=== PATIENT | male | born 1960 | race Caucasian/White ===

== ENCOUNTER 2016-09-14 10:00 | Emergency (ER) | payer OTHER ==
[2016-09-14] MEDS ORDERED: KETOROLAC 30 MG/ML VIAL (J1885) As Ordered ONE (10:32)
[2016-09-14 10:41] LABS: BASO # 0.1 K/mm3 (0.0-0.2); BASO % 0.5 % (0.0-1.0); EOS # 0.7 K/mm3 (0.0-0.50); EOS % 5.7 % (0.0-3.0); LARGE UNSTAINED CELL # 0.1 K/mm3 (0.0-0.4); LARGE UNSTAINED CELL % 1.2 % (0.0-4.0); LYMPH # 1.8 K/mm3 (1.5-4.5); LYMPH % 14.8 % (24.0-44.0); MEAN CORPUSCULAR HGB CONC 34.5 g/dl (32.0-36.5); MEAN CORPUSCULAR VOLUME 84.1 fl (80.0-96.0); MONO # 0.5 K/mm3 (0.0-0.8); MONO % 4.4 % (0.0-5.0); NEUTROPHILS # 8.8 K/mm3 (1.8-7.7); NEUTROPHILS % 73.4 % (36.0-66.0); PLATELET COUNT, AUTOMATED 259 k/mm3 (150-450); RED CELL DISTRIBUTION WIDTH 12.6 % (11.5-14.5); WHITE BLOOD COUNT 11.9 K/mm3 (4.0-10.0)
[2016-09-14 11:01] LABS: ANION GAP 9 MEQ/L (8-16); BLOOD UREA NITROGEN 22 MG/DL (7-18); CALCIUM LEVEL 8.9 MG/DL (8.5-10.1); CARBON DIOXIDE LEVEL 26 MEQ/L (21-32); CHLORIDE LEVEL 104 MEQ/L (98-107); GLOMERULAR FILTRATION RATE > 60.0 (>56); GLUCOSE, FASTING 102 MG/DL (70-105); POTASSIUM SERUM 4.6 MEQ/L (3.5-5.1); SODIUM LEVEL 139 MEQ/L (136-145)
[2016-09-14 11:11] LABS: ERYTHROCYTE SEDIMENTATION RATE 1 mm/hr (0-20)
--- NOTE | 2016-09-14 11:21 | REP ---
CHEST, TWO VIEWS: Two views of the chest are performed and compared to a prior study of 12/17/2011. There is mild bibasilar fibrotic change, which is stable. There is no acute infiltrate or pulmonary edema. The heart is normal in size. The mediastinal silhouette is unchanged. Metallic plate and screws are seen in the lower cervical spine. There are degenerative changes of the spine. IMPRESSION: No acute pulmonary disease. Signed by Bashir Grossman MD 09/14/2016 01:29 P
--- NOTE | 2016-09-14 11:24 | REP ---
CERVICAL SPINE SERIES: Full cervical spine series is performed with nine total views obtained. There is no compression fracture or malalignment. There is no prevertebral soft tissue swelling. There is evidence of prior anterior cervical discectomy and fusion at C6-7. There is slight narrowing at C5-6 disc space. There is diffuse narrowing, sclerosis and spurring at the posterior facet joints. There is uncovertebral and facet spurring which may cause a mild degree of neural foraminal narrowing at C3-4 bilaterally and C5-6 bilaterally. IMPRESSION: Mild degenerative changes. Prior anterior cervical discectomy and fusion at C6-7. Signed by Bashir Grossman MD 09/14/2016 01:29 P
--- NOTE | 2016-09-14 11:33 | REP ---
Left upper extremity duplex Doppler venous ultrasound. Real time compression and duplex Doppler evaluation of the left upper extremity deep venous system is performed. The left subclavian, jugular, axillary, brachial, basilic and cephalic veins are fully compressible where accessible with transducer pressure, and demonstrate no intraluminal thrombus and normal venous waveforms. There is no evidence of deep venous thrombosis. Impression: No evidence of deep venous thrombosis of the left upper extremity deep vein system. Signed by Bashir Grossman MD 09/14/2016 11:24 A
--- NOTE | 2016-09-14 11:57 | EDDOCDS ---
Physician Documentation [facility] Name: Francois Reich Age: 56 yrs Sex: Male : 1960 Arrival Date: 09/14/2016 Time: 10:00 Bed I5 / M5 Private MD: Sahree [facility] Disposition: 09/14/16 11:46 Discharged to Home/Self Care. Impression: Pain in left upper arm. - Condition is Stable. - Discharge Instructions: Musculoskeletal Pain. - Prescriptions for Mobic 7.5 mg Oral Tablet - take 1 tablet by ORAL route once daily As needed take with food; 20 tablet. - Medication Reconciliation, Local Pharmacy Hours form. - Follow up: Emergency Department; When: As needed; Reason: Worsening of conditions. Follow up: Private Physician; When: 2 - 3 days; Reason: Wound/Symptom Recheck, Recheck today's complaints, Continuance of care. - Problem is new. - Symptoms have improved. Historical: - Allergies: no known allergies; - Home Meds: 1. Nexium 20 mg Oral cpDR 1 cap once daily 2. lisinopril 20 mg Oral tab 1 tab once daily - PMHx: Hypertension; GERD; Shingles; - PSHx: C6 fusion; - Social history: Smoking status: Patient states was never smoker of tobacco. No barriers to communication noted, The patient speaks fluent Taiwanese, Speaks appropriately for age. - Family history: Not pertinent. - : The pt / caregiver states he / she is not on anticoagulants. Home medication list is obtained from the patient. - Exposure Risk Screening:: None identified. Vital Signs: 09/14 10:02 BP 152 / 82; Pulse 79; Resp 18; Temp 98.0; Pulse Ox 98% ; Weight 117.93 kg / 259.99 elp lbs; Height 71 in. (180.34 cm) (R); Pain 7/10; 11:55 BP 135 / 78; Pulse 71; Resp 18; Temp 98; Pulse Ox 96% ; Pain 0/10; ms18 10:02 Body Mass Index 36.26 (117.93 kg, 180.34 cm) elp MDM: 10:08 ECG WITH READING ER PHYS+CARDIAG ordered. EDMS 10:24 IV Saline Lock ordered. dt4 10:24 ketorolac 30 mg IVP once ordered. dt4 10:25 US Upper Extremity R/O DVT Ordered. EDMS 10:25 CBC with Diff Ordered. EDMS 10:25 Basic Metabolic Profile Ordered. EDMS 10:26 Troponin Ordered. EDMS 10:26 Cardiac Injury Profile Ordered. EDMS 10:26 Sed Rate Ordered. EDMS 10:26 CRP Ordered. EDMS 10:26 Chest, 2 View (pa\E\lat) Ordered. EDMS 10:27 Spine, Cervical Ordered. EDMS 11:23 Financial registration complete. pm4 Administered Medications: 10:37 Drug: ketorolac 30 mg [ketorolac 30 mg/mL (1 mL) injection solution (1 mL)] Route: IVP; js13 Site: left antecubital; Signatures: Dispatcher [employer] EDMS Kelli Espinosa, RN RN [facility] Monisha MclaughlinRN RN js13 Adamaris Malik, PA-C PA-C dt4 Lisandra Schwartz RN RN ms18 Anam Jameson, Reg Reg pm4 MTDD
--- NOTE | 2016-09-14 11:57 | EDDOCDS ---
Nurse's Notes [facility] Name: Francois Reich Age: 56 yrs Sex: Male : 1960 Arrival Date: 09/14/2016 Time: 10:00 Bed I5 / M5 Private MD: Sharee Fernando Diagnosis: Pain in left upper arm Presentation: 09/14 10:04 Presenting complaint: Patient states: left arm pain for 3-4 days. denies chest pain or srm SOB. no increase in use of arm. no injury to arm. Adult Sepsis Screening: The patient does not have new or worsening altered mentation. Patient's respiratory rate is less than 22. Systolic blood pressure is greater than 100. Patient has a qSOFA score of 0- Negative Sepsis Screen. Suicide/Homicide risk assessment- the patient denies having any suicidal and/or homicidal ideations and does not present with any other emotional, behavioral or mental health complaints. Status: Patient is not a account services coordinator or dependent. Transition of care: patient was not received from another setting of care. 10:04 Acuity: GRISEL Level 4 srm 10:04 Method Of Arrival: Walkin/Carried/Asstd srm 10:27 Acuity level changed due to complexity of care. srm 10:27 Acuity: GRISEL Level 3 srm Triage Assessment: 10:06 General: Appears in no apparent distress, Behavior is appropriate for age, cooperative. srm Pain: Pain currently is 6 out of 10 on a pain scale. HIV screening NA for this visit Offered previously. Musculoskeletal: Reports left arm pain. Historical: - Allergies: no known allergies; - Home Meds: 1. Nexium 20 mg Oral cpDR 1 cap once daily 2. lisinopril 20 mg Oral tab 1 tab once daily - PMHx: Hypertension; GERD; Shingles; - PSHx: C6 fusion; - Social history: Smoking status: Patient states was never smoker of tobacco. No barriers to communication noted, The patient speaks fluent American, Speaks appropriately for age. - Family history: Not pertinent. - : The pt / caregiver states he / she is not on anticoagulants. Home medication list is obtained from the patient. - Exposure Risk Screening:: None identified. Screenin:38 Screening information is obtained from the patient. Fall risk: No risks identified. js13 Assistance ADL's: requires no assistance with activities of daily living. Abuse/DV Screen: The patient / caregiver reports he/she is: not in a situation that causes fear, pain or injury. Nutritional screening: No deficits noted. Advance Directives: There is no active DNR order. home support is adequate. Assessment: 10:38 General: Appears in no apparent distress, Behavior is appropriate for age, cooperative. js13 Pain: Pain currently is 3 out of 10 on a pain scale. Neurological: Level of Consciousness is awake, alert. Cardiovascular: Chest pain is denied. Respiratory: Airway is patent Respiratory effort is even, unlabored, Respiratory pattern is regular, symmetrical. Derm: Skin is pink, warm & dry. Musculoskeletal: Circulation, motion, and sensation intact Range of motion intact in all extremities. 10:40 General: Patient states that he was told by Irving Camilo to come her to be evaluated and js13 rule out DC since he has "2 small heart attacks" previously. Provider notified.. 11:37 General: Appears in no apparent distress, comfortable, Behavior is appropriate for age, ms18 cooperative, pleasant. Pain: Denies pain. Neurological: Level of Consciousness is awake, alert, obeys commands, Oriented to person, place, time. Respiratory: Airway is patent Respiratory effort is even, unlabored, Respiratory pattern is regular, symmetrical. Derm: Skin is pink, warm & dry. Vital Signs: 10:02 BP 152 / 82; Pulse 79; Resp 18; Temp 98.0; Pulse Ox 98% ; Weight 117.93 kg; Height 71 elp in. (180.34 cm) (R); Pain 7/10; 11:55 BP 135 / 78; Pulse 71; Resp 18; Temp 98; Pulse Ox 96% ; Pain 0/10; ms18 10:02 Body Mass Index 36.26 (117.93 kg, 180.34 cm) elp Vitals: 10:02 Log In Time: September 14, 2016 at 10:00. RN notified that patient meets Red Flag elp criteria. ED Course: 10:02 Patient visited by Jes Sanchez PCA. elp 10:02 Sharee [facility] is Private Physician. elp 10:02 Patient moved to Waiting elp 10:03 Patient visited by Jes Sanchez PCA. elp 10:03 Patient moved to Pre RCE elp 10:05 Triage Initiated srm 10:07 [facility] dt4 10:07 Ric Shepard MD is Attending Physician. dt4 10:07 Patient visited by Adamaris Malik PA-C. dt4 10:07 Patient moved to Triage 2 srm 10:25 Patient moved to I5 / M5 ml6 10:38 The patient / caregiver is instructed regarding the plan of care and ED course. js13 10:38 CRP Sent. js13 10:38 Sed Rate Sent. js13 10:38 Cardiac Injury Profile Sent. js13 10:38 Troponin Sent. js13 10:38 Basic Metabolic Profile Sent. js13 10:38 CBC with Diff Sent. js13 10:38 Inserted saline lock: 18 gauge in left antecubital area and blood collected. The js13 patient tolerated the procedure well. No procedures done that require assistance. Labs drawn. (by ED staff). Sent per order to lab. 10:40 Patient visited by Monisha Mclaughlin,JIMMY. js13 10:41 Patient visited by Monisha Mclaughlin,JIMMY. js13 11:05 Patient moved to Ultrasound js13 11:20 Patient moved to I5 / M5 am10 11:37 Patient visited by Lisandra Schwartz RN. ms18 11:37 Patient has correct armband on for positive identification. Placed in gown. Bed in low ms18 position. Call light in reach. Property :Personal belongings accompany Pt. 11:40 Patient name changed from Francois\\S\\N\\S\\Reich\\S\\ to Francois\\S\\Thuan\\S\\Reich. EDMS 11:54 Chest, 2 View (pa\\E\\lat) Returned. EDMS 11:55 Spine, Cervical Returned. EDMS 11:55 US Upper Extremity R/O DVT Returned. EDMS 11:55 Discontinued IV lock intact, bleeding controlled, pressure dressing applied, No ms18 redness/swelling at site. Administered Medications: 10:37 Drug: ketorolac 30 mg [ketorolac 30 mg/mL (1 mL) injection solution (1 mL)] Route: IVP; js13 Site: left antecubital; Order Results: Lab Order: CBC with Diff; SPEC'M 09/14/16 10:35 Test: WHITE BLOOD COUNT; Value: 11.9; Range: 4.0-10.0; Abnormal: Above high normal; Units: K/mm3; Status: F Test: RED BLOOD COUNT; Value: 5.61; Range: 4.30-6.10; Units: M/mm3; Status: F Test: HEMOGLOBIN; Value: 16.3; Range: 14.0-18.0; Units: g/dl; Status: F Test: HEMATOCRIT; Value: 47.1; Range: 42.0-52.0; Units: %; Status: F Test: MEAN CORPUSCULAR VOLUME; Value: 84.1; Range: 80.0-96.0; Units: fl; Status: F Test: MEAN CORPUSCULAR HEMOGLOBIN; Value: 29.0; Range: 27.0-33.0; Units: pg; Status: F Test: MEAN CORPUSCULAR HGB CONC; Value: 34.5; Range: 32.0-36.5; Units: g/dl; Status: F Test: RED CELL DISTRIBUTION WIDTH; Value: 12.6; Range: 11.5-14.5; Units: %; Status: F Test: PLATELET COUNT, AUTOMATED; Value: 259; Range: 150-450; Units: k/mm3; Status: F Test: NEUTROPHILS %; Value: 73.4; Range: 36.0-66.0; Abnormal: Above high normal; Units: %; Status: F Test: LYMPH %; Value: 14.8; Range: 24.0-44.0; Abnormal: Below low normal; Units: %; Status: F Test: MONO %; Value: 4.4; Range: 0.0-5.0; Units: %; Status: F Test: EOS %; Value: 5.7; Range: 0.0-3.0; Abnormal: Above high normal; Units: %; Status: F Test: BASO %; Value: 0.5; Range: 0.0-1.0; Units: %; Status: F Test: LARGE UNSTAINED CELL %; Value: 1.2; Range: 0.0-4.0; Units: %; Status: F Test: NEUTROPHILS #; Value: 8.8; Range: 1.8-7.7; Abnormal: Above high normal; Units: K/mm3; Status: F Test: LYMPH #; Value: 1.8; Range: 1.5-4.5; Units: K/mm3; Status: F Test: MONO #; Value: 0.5; Range: 0.0-0.8; Units: K/mm3; Status: F Test: EOS #; Value: 0.7; Range: 0.0-0.50; Abnormal: Above high normal; Units: K/mm3; Status: F Test: BASO #; Value: 0.1; Range: 0.0-0.2; Units: K/mm3; Status: F Test: LARGE UNSTAINED CELL #; Value: 0.1; Range: 0.0-0.4; Units: K/mm3; Status: F Lab Order: Basic Metabolic Profile; SPEC'M 09/14/16 10:35 Test: GLUCOSE, FASTING; Value: 102; Range: 70-105; Units: MG/DL; Status: F Test: BLOOD UREA NITROGEN; Value: 22; Range: 7-18; Abnormal: Above high normal; Units: MG/DL; Status: F Test: CREATININE FOR GFR; Value: 1.10; Range: 0.70-1.30; Units: MG/DL; Status: F Test: GLOMERULAR FILTRATION RATE; Value: > 60.0; Range: >56; Status: F Test: SODIUM LEVEL; Value: 139; Range: 136-145; Units: MEQ/L; Status: F Test: POTASSIUM SERUM; Value: 4.6; Range: 3.5-5.1; Units: MEQ/L; Status: F Test: CHLORIDE LEVEL; Value: 104; Range: 98-107; Units: MEQ/L; Status: F Test: CARBON DIOXIDE LEVEL; Value: 26; Range: 21-32; Units: MEQ/L; Status: F Test: ANION GAP; Value: 9; Range: 8-16; Units: MEQ/L; Status: F Test: CALCIUM LEVEL; Value: 8.9; Range: 8.5-10.1; Units: MG/DL; Status: F Test Note: ; Units are mL/min/1.73 m2 Chronic Kidney Disease Staging per NKF: Stage I & II GFR >=60 Normal to Mildly Decreased Stage III GFR 30-59 Moderately Decreased Stage IV GFR 15-29 Severely Decreased Stage V GFR <15 Very Little GFR Left ESRD GFR <15 on NON DESTRUCTIVE TESTING INSPECTOR Lab Order: Troponin; SPEC'M 09/14/16 10:35 Test: TROPONIN I; Value: < 0.02; Range: < 0.10; Units: NG/ML; Status: F Test Note: ; Troponin I Reference Interval for Siemens [place] LOCI: 99th Percentile= 0.00-0.045 ng/ml Risk Stratification: <= 0.10 ng/ml Decreased Risk for Adverse Clinical Events. 0.10-1.50 ng/ml Increased Risk for Adverse Clinical Events. Evaluation of additional criterion and/or repeat testing in 2-6 hours is suggested to rule out myocardial damage. >= 1.50 ng/ml Indicative of Myocardial Injury. Lab Order: Cardiac Injury Profile; SPEC'M 09/14/16 10:35 Test: CPK CREATINE PHOSPHOKINASE; Value: 229; Range: 39-308; Units: U/L; Status: F Test: CK-MB VALUE MASS; Value: 2.8; Range: 0.0-3.6; Units: NG/ML; Status: F Test: MB/CK RELATIVE INDEX; Value: 1.22; Range: < OR =4; Status: F Test Note: ; DIAGNOSIS CRITERIA MMB ng/ml Relative Index (RI) NON-AMI < or = 5 N/A GROSSMAN ZONE > 5 < or = 4 AMI > 5 > 4 Lab Order: Sed Rate; [facility] 09/14/16 10:35 Test: ERYTHROCYTE SEDIMENTATION RATE; Value: 1; Range: 0-20; Units: mm/hr; Status: F Lab Order: CRP; [facility] 09/14/16 10:35 Test: C REACTIVE PROTEIN QUANTITATIV; Value: < 0.30; Range: 0.00-0.30; Units: MG/DL; Status: F Radiology Order: US Upper Extremity R/O DVT Test: US Upper Extremity R/O DVT REASON FOR EXAMINATION: LEFT ARM PAIN; Left upper extremity duplex Doppler venous ultrasound.; ; Real time compression and duplex Doppler evaluation of the left upper extremity; deep venous system is performed. The left subclavian, jugular, axillary,; brachial, basilic and cephalic veins are fully compressible where accessible with; transducer pressure, and demonstrate no intraluminal thrombus and normal venous; waveforms. There is no evidence of deep venous thrombosis.; ; Impression:; ; No evidence of deep venous thrombosis of the left upper extremity deep vein; system.; ; ; Signed by; Bashir Grossman MD 09/14/2016 11:24 A; Radiology Order: Chest, 2 View (pa\\E\\lat) Test: Chest, 2 View (pa\\E\\lat) REASON FOR EXAMINATION: LEFT ARM AND UPPER CHEST PAIN; ; CHEST, TWO VIEWS:; ; Two views of the chest are performed and compared to a prior study of; 12/17/2011.; ; There is mild bibasilar fibrotic change, which is stable. There is no acute; infiltrate or pulmonary edema. The heart is normal in size. The mediastinal; silhouette is unchanged. Metallic plate and screws are seen in the lower cervical; spine. There are degenerative changes of the spine.; ; IMPRESSION:; No acute pulmonary disease.; ; Unreviewed; Radiology Order: Spine, Cervical Test: Spine, Cervical REASON FOR EXAMINATION: LEFT ARM PAIN; CERVICAL SPINE SERIES:; ; Full cervical spine series is performed with nine total views obtained. There is; no compression fracture or malalignment. There is no prevertebral soft tissue; swelling. There is evidence of prior anterior cervical discectomy and fusion at; C6-7. There is slight narrowing at C5-6 disc space. There is diffuse narrowing,; sclerosis and spurring at the posterior facet joints. There is uncovertebral and; facet spurring which may cause a mild degree of neural foraminal narrowing at; C3-4 bilaterally and C5-6 bilaterally.; ; IMPRESSION:; Mild degenerative changes. Prior anterior cervical discectomy and fusion at; C6-7.; ; Unreviewed; Outcome: 11:37 Ultrasound Study completed. ms18 11:46 Discharge ordered by Provider. dt4 11:55 Discharge Assessment: Patient awake, alert and oriented x 3. No cognitive and/or ms18 functional deficits noted. Patient verbalized understanding of disposition instructions. patient administered narcotics - no. The following High Risk Discharge criteria are identified: None. Discharged to home ambulatory. Condition: good Condition: stable Condition: improved. Discharge instructions given to patient, Instructed on discharge instructions, follow up and referral plans. medication usage, Demonstrated understanding of instructions, medications, Pt was receptive of discharge instructions/ teaching. Prescriptions given X 1. 11:57 Patient left the ED. ms18 Signatures: Dispatcher [facility] EDMS Kelli Espinosa RN RN Ida Glibert am10 Anson Harding, RN RN ml6 Monisha Mclaughlin,RN RN js13 Jes Sanchez, EMILI CERTIFIED EXECUTIVE CHEF kaileyp Adamaris Malik, MONA PAFidelia dt4 Lisandra Schwartz,RN RN ms18 MTDD
--- NOTE | 2016-09-15 08:32 | ECGEPIP ---
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
--- NOTE | 2016-09-16 12:57 | EDDOCDS ---
Nurse's Notes [facility] Name: Francois Lal Age: 56 yrs Sex: Male : 1960 Arrival Date: 09/14/2016 Time: 10:00 Bed I5 / M5 Private MD: Sharee Fernando Diagnosis: Pain in left upper arm Presentation: 09/14 10:04 Presenting complaint: Patient states: left arm pain for 3-4 days. denies chest pain or srm SOB. no increase in use of arm. no injury to arm. Adult Sepsis Screening: The patient does not have new or worsening altered mentation. Patient's respiratory rate is less than 22. Systolic blood pressure is greater than 100. Patient has a qSOFA score of 0- Negative Sepsis Screen. Suicide/Homicide risk assessment- the patient denies having any suicidal and/or homicidal ideations and does not present with any other emotional, behavioral or mental health complaints. Status: Patient is not a donor services manager or dependent. Transition of care: patient was not received from another setting of care. 10:04 Acuity: GRISEL Level 4 srm 10:04 Method Of Arrival: Walkin/Carried/Asstd srm 10:27 Acuity level changed due to complexity of care. srm 10:27 Acuity: GRISEL Level 3 srm Triage Assessment: 10:06 General: Appears in no apparent distress, Behavior is appropriate for age, cooperative. srm Pain: Pain currently is 6 out of 10 on a pain scale. HIV screening NA for this visit Offered previously. Musculoskeletal: Reports left arm pain. Historical: - Allergies: no known allergies; - Home Meds: 1. Nexium 20 mg Oral cpDR 1 cap once daily 2. lisinopril 20 mg Oral tab 1 tab once daily - PMHx: Hypertension; GERD; Shingles; - PSHx: C6 fusion; - Social history: Smoking status: Patient states was never smoker of tobacco. No barriers to communication noted, The patient speaks fluent Nauruan, Speaks appropriately for age. - Family history: Not pertinent. - : The pt / caregiver states he / she is not on anticoagulants. Home medication list is obtained from the patient. - Exposure Risk Screening:: None identified. Screenin:38 Screening information is obtained from the patient. Fall risk: No risks identified. js13 Assistance ADL's: requires no assistance with activities of daily living. Abuse/DV Screen: The patient / caregiver reports he/she is: not in a situation that causes fear, pain or injury. Nutritional screening: No deficits noted. Advance Directives: There is no active DNR order. home support is adequate. Assessment: 10:38 General: Appears in no apparent distress, Behavior is appropriate for age, cooperative. js13 Pain: Pain currently is 3 out of 10 on a pain scale. Neurological: Level of Consciousness is awake, alert. Cardiovascular: Chest pain is denied. Respiratory: Airway is patent Respiratory effort is even, unlabored, Respiratory pattern is regular, symmetrical. Derm: Skin is pink, warm & dry. Musculoskeletal: Circulation, motion, and sensation intact Range of motion intact in all extremities. 10:40 General: Patient states that he was told by Irving Camilo to come her to be evaluated and js13 rule out MS since he has "2 small heart attacks" previously. Provider notified.. 11:37 General: Appears in no apparent distress, comfortable, Behavior is appropriate for age, ms18 cooperative, pleasant. Pain: Denies pain. Neurological: Level of Consciousness is awake, alert, obeys commands, Oriented to person, place, time. Respiratory: Airway is patent Respiratory effort is even, unlabored, Respiratory pattern is regular, symmetrical. Derm: Skin is pink, warm & dry. Vital Signs: 10:02 BP 152 / 82; Pulse 79; Resp 18; Temp 98.0; Pulse Ox 98% ; Weight 117.93 kg; Height 71 elp in. (180.34 cm) (R); Pain 7/10; 11:55 BP 135 / 78; Pulse 71; Resp 18; Temp 98; Pulse Ox 96% ; Pain 0/10; ms18 10:02 Body Mass Index 36.26 (117.93 kg, 180.34 cm) elp Vitals: 10:02 Log In Time: September 14, 2016 at 10:00. RN notified that patient meets Red Flag elp criteria. ED Course: 10:02 Patient visited by Jes Sanchez PCA. elp 10:02 Sharee [facility] is Private Physician. elp 10:02 Patient moved to Waiting elp 10:03 Patient visited by Jes Sanchez PCA. elp 10:03 Patient moved to Pre RCE elp 10:05 Triage Initiated srm 10:07 Adamaris Malik PA-C is PHCP. dt4 10:07 Ric Shepard MD is Attending Physician. dt4 10:07 Patient visited by Adamaris Malik PA-C. dt4 10:07 Patient moved to Triage 2 srm 10:25 Patient moved to I5 / M5 ml6 10:38 The patient / caregiver is instructed regarding the plan of care and ED course. js13 10:38 CRP Sent. js13 10:38 Sed Rate Sent. js13 10:38 Cardiac Injury Profile Sent. js13 10:38 Troponin Sent. js13 10:38 Basic Metabolic Profile Sent. js13 10:38 CBC with Diff Sent. js13 10:38 Inserted saline lock: 18 gauge in left antecubital area and blood collected. The js13 patient tolerated the procedure well. No procedures done that require assistance. Labs drawn. (by ED staff). Sent per order to lab. 10:40 Patient visited by Monisha Mclaughlin,JIMMY. js13 10:41 Patient visited by Monisha Mclaughlin,JIMMY. js13 11:05 Patient moved to Ultrasound js13 11:20 Patient moved to I5 / M5 am10 11:37 Patient visited by Lisandra Schwartz RN. ms18 11:37 Patient has correct armband on for positive identification. Placed in gown. Bed in low ms18 position. Call light in reach. Property :Personal belongings accompany Pt. 11:40 Patient name changed from Francois\\S\\N\\S\\Lal\\S\\ to Francois\\S\\Thuan\\S\\Lal. EDMS 11:54 Chest, 2 View (pa\\E\\lat) Returned. EDMS 11:55 Spine, Cervical Returned. EDMS 11:55 US Upper Extremity R/O DVT Returned. EDMS 11:55 Discontinued IV lock intact, bleeding controlled, pressure dressing applied, No ms18 redness/swelling at site. 12:01 [facility] Payment Agreement was scanned into [employer] and attached to record. pm4 14:47 T-Sheet-- Draft Copy was scanned into [employer] and attached to record. gb 14:47 ECG/EKG was scanned into [employer] and attached to record. gb 14:48 Radiology Report was scanned into [employer] and attached to record. gb 09/15 08:38 EKG-ADULT Returned. EDMS Administered Medications: 09/14 10:37 Drug: ketorolac 30 mg [ketorolac 30 mg/mL (1 mL) injection solution (1 mL)] Route: IVP; js13 Site: left antecubital; Order Results: Lab Order: CBC with Diff; SPEC'M 09/14/16 10:35 Test: WHITE BLOOD COUNT; Value: 11.9; Range: 4.0-10.0; Abnormal: Above high normal; Units: K/mm3; Status: F Test: RED BLOOD COUNT; Value: 5.61; Range: 4.30-6.10; Units: M/mm3; Status: F Test: HEMOGLOBIN; Value: 16.3; Range: 14.0-18.0; Units: g/dl; Status: F Test: HEMATOCRIT; Value: 47.1; Range: 42.0-52.0; Units: %; Status: F Test: MEAN CORPUSCULAR VOLUME; Value: 84.1; Range: 80.0-96.0; Units: fl; Status: F Test: MEAN CORPUSCULAR HEMOGLOBIN; Value: 29.0; Range: 27.0-33.0; Units: pg; Status: F Test: MEAN CORPUSCULAR HGB CONC; Value: 34.5; Range: 32.0-36.5; Units: g/dl; Status: F Test: RED CELL DISTRIBUTION WIDTH; Value: 12.6; Range: 11.5-14.5; Units: %; Status: F Test: PLATELET COUNT, AUTOMATED; Value: 259; Range: 150-450; Units: k/mm3; Status: F Test: NEUTROPHILS %; Value: 73.4; Range: 36.0-66.0; Abnormal: Above high normal; Units: %; Status: F Test: LYMPH %; Value: 14.8; Range: 24.0-44.0; Abnormal: Below low normal; Units: %; Status: F Test: MONO %; Value: 4.4; Range: 0.0-5.0; Units: %; Status: F Test: EOS %; Value: 5.7; Range: 0.0-3.0; Abnormal: Above high normal; Units: %; Status: F Test: BASO %; Value: 0.5; Range: 0.0-1.0; Units: %; Status: F Test: LARGE UNSTAINED CELL %; Value: 1.2; Range: 0.0-4.0; Units: %; Status: F Test: NEUTROPHILS #; Value: 8.8; Range: 1.8-7.7; Abnormal: Above high normal; Units: K/mm3; Status: F Test: LYMPH #; Value: 1.8; Range: 1.5-4.5; Units: K/mm3; Status: F Test: MONO #; Value: 0.5; Range: 0.0-0.8; Units: K/mm3; Status: F Test: EOS #; Value: 0.7; Range: 0.0-0.50; Abnormal: Above high normal; Units: K/mm3; Status: F Test: BASO #; Value: 0.1; Range: 0.0-0.2; Units: K/mm3; Status: F Test: LARGE UNSTAINED CELL #; Value: 0.1; Range: 0.0-0.4; Units: K/mm3; Status: F Lab Order: Basic Metabolic Profile; [facility] 09/14/16 10:35 Test: GLUCOSE, FASTING; Value: 102; Range: 70-105; Units: MG/DL; Status: F Test: BLOOD UREA NITROGEN; Value: 22; Range: 7-18; Abnormal: Above high normal; Units: MG/DL; Status: F Test: CREATININE FOR GFR; Value: 1.10; Range: 0.70-1.30; Units: MG/DL; Status: F Test: GLOMERULAR FILTRATION RATE; Value: > 60.0; Range: >56; Status: F Test: SODIUM LEVEL; Value: 139; Range: 136-145; Units: MEQ/L; Status: F Test: POTASSIUM SERUM; Value: 4.6; Range: 3.5-5.1; Units: MEQ/L; Status: F Test: CHLORIDE LEVEL; Value: 104; Range: 98-107; Units: MEQ/L; Status: F Test: CARBON DIOXIDE LEVEL; Value: 26; Range: 21-32; Units: MEQ/L; Status: F Test: ANION GAP; Value: 9; Range: 8-16; Units: MEQ/L; Status: F Test: CALCIUM LEVEL; Value: 8.9; Range: 8.5-10.1; Units: MG/DL; Status: F Test Note: ; Units are mL/min/1.73 m2 Chronic Kidney Disease Staging per NKF: Stage I & II GFR >=60 Normal to Mildly Decreased Stage III GFR 30-59 Moderately Decreased Stage IV GFR 15-29 Severely Decreased Stage V GFR <15 Very Little GFR Left ESRD GFR <15 on TELEPHONE CLEANER Lab Order: Troponin; [facility]09/14/16 10:35 Test: TROPONIN I; Value: < 0.02; Range: < 0.10; Units: NG/ML; Status: F Test Note: ; Troponin I Reference Interval for [employer] LOCI: 99th Percentile= 0.00-0.045 ng/ml Risk Stratification: <= 0.10 ng/ml Decreased Risk for Adverse Clinical Events. 0.10-1.50 ng/ml Increased Risk for Adverse Clinical Events. Evaluation of additional criterion and/or repeat testing in 2-6 hours is suggested to rule out myocardial damage. >= 1.50 ng/ml Indicative of Myocardial Injury. Lab Order: Cardiac Injury Profile; [facility]09/14/16 10:35 Test: CPK CREATINE PHOSPHOKINASE; Value: 229; Range: 39-308; Units: U/L; Status: F Test: CK-MB VALUE MASS; Value: 2.8; Range: 0.0-3.6; Units: NG/ML; Status: F Test: MB/CK RELATIVE INDEX; Value: 1.22; Range: < OR =4; Status: F Test Note: ; DIAGNOSIS CRITERIA MMB ng/ml Relative Index (RI) NON-AMI < or = 5 N/A GROSSMAN ZONE > 5 < or = 4 AMI > 5 > 4 Lab Order: Sed Rate; [facility]09/14/16 10:35 Test: ERYTHROCYTE SEDIMENTATION RATE; Value: 1; Range: 0-20; Units: mm/hr; Status: F Lab Order: CRP; 09/14/16 10:35 Test: C REACTIVE PROTEIN QUANTITATIV; Value: < 0.30; Range: 0.00-0.30; Units: MG/DL; Status: F Radiology Order: EKG-ADULT Test: EKG-ADULT REASON FOR EXAMINATION: LEFT ARM PAIN; Stationary ECG Study; 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; : 1960 Requested By: ADAMARIS Robin PA-C; Order Number: [id number] Reading MD: Michelle Somers; Measurements; Intervals [place]; Rate: 71 P: 35; MS: 176 QRS: 36; QRSD: 107 T: 63; QT: 366; QTc: 400; Interpretive Statements; SINUS RHYTHM; PRWP; NSTTW ABNORMALITY; INCREASED RATE 12/17/11; Electronically Signed On 09-15-2016 8:31:54 EST by Michelle Somers; Radiology Order: US Upper Extremity R/O DVT Test: US Upper Extremity R/O DVT REASON FOR EXAMINATION: LEFT ARM PAIN; Left upper extremity duplex Doppler venous ultrasound.; ; Real time compression and duplex Doppler evaluation of the left upper extremity; deep venous system is performed. The left subclavian, jugular, axillary,; brachial, basilic and cephalic veins are fully compressible where accessible with; transducer pressure, and demonstrate no intraluminal thrombus and normal venous; waveforms. There is no evidence of deep venous thrombosis.; ; Impression:; ; No evidence of deep venous thrombosis of the left upper extremity deep vein; system.; ; ; Signed by; Bashir Grossman MD 09/14/2016 11:24 A; Radiology Order: Chest, 2 View (pa\\E\\lat) Test: Chest, 2 View (pa\\E\\lat) REASON FOR EXAMINATION: LEFT ARM AND UPPER CHEST PAIN; CHEST, TWO VIEWS:; ; Two views of the chest are performed and compared to a prior study of; 12/17/2011.; ; There is mild bibasilar fibrotic change, which is stable. There is no acute; infiltrate or pulmonary edema. The heart is normal in size. The mediastinal; silhouette is unchanged. Metallic plate and screws are seen in the lower cervical; spine. There are degenerative changes of the spine.; ; IMPRESSION:; ; No acute pulmonary disease.; ; ; Signed by; Bashir Grossman MD 09/14/2016 01:29 P; Radiology Order: Spine, Cervical Test: Spine, Cervical REASON FOR EXAMINATION: LEFT ARM PAIN; CERVICAL SPINE SERIES:; ; Full cervical spine series is performed with nine total views obtained. There is; no compression fracture or malalignment. There is no prevertebral soft tissue; swelling. There is evidence of prior anterior cervical discectomy and fusion at; C6-7. There is slight narrowing at C5-6 disc space. There is diffuse narrowing,; sclerosis and spurring at the posterior facet joints. There is uncovertebral and; facet spurring which may cause a mild degree of neural foraminal narrowing at; C3-4 bilaterally and C5-6 bilaterally.; ; IMPRESSION:; ; Mild degenerative changes. Prior anterior cervical discectomy and fusion at; C6-7.; ; ; Signed by; Bashir Grossman MD 09/14/2016 01:29 P; Outcome: 11:37 Ultrasound Study completed. ms18 11:46 Discharge ordered by Provider. dt4 11:55 Discharge Assessment: Patient awake, alert and oriented x 3. No cognitive and/or ms18 functional deficits noted. Patient verbalized understanding of disposition instructions. patient administered narcotics - no. The following High Risk Discharge criteria are identified: None. Discharged to home ambulatory. Condition: good Condition: stable Condition: improved. Discharge instructions given to patient, Instructed on discharge instructions, follow up and referral plans. medication usage, Demonstrated understanding of instructions, medications, Pt was receptive of discharge instructions/ teaching. Prescriptions given X 1. 11:57 Patient left the ED. ms18 Signatures: Dispatcher [employer] EDMS Kelli Espinosa, RN JIMMY [facility] Bridgette Del Angel, Reg Reg gb Ida Simental am10 Anson Harding RN RN ml6 Monisha Mclaughlin RN RN js13 Jes Sanchez, DIRECTOR OF PEDIATRIC REHABILITATION DIRECTOR OF PEDIATRIC REHABILITATION elp Adamaris Malik, PA-C PA-C dt4 Lisandra Schwartz RN RN ms18 Anam Jameson, Reg Reg pm4 Chart Complete MTDD
--- NOTE | 2016-09-16 12:57 | EDDOCDS ---
Physician Documentation [facility] Name: Francois Reich Age: 56 yrs Sex: Male : 1960 Arrival Date: 09/14/2016 Time: 10:00 Bed I5 / M5 Private MD: Sharee [facility] Disposition: 09/14/16 11:46 Discharged to Home/Self Care. Impression: Pain in left upper arm. - Condition is Stable. - Discharge Instructions: Musculoskeletal Pain. - Prescriptions for Mobic 7.5 mg Oral Tablet - take 1 tablet by ORAL route once daily As needed take with food; 20 tablet. - Medication Reconciliation, Local Pharmacy Hours form. - Follow up: Emergency Department; When: As needed; Reason: Worsening of conditions. Follow up: Private Physician; When: 2 - 3 days; Reason: Wound/Symptom Recheck, Recheck today's complaints, Continuance of care. - Problem is new. - Symptoms have improved. Historical: - Allergies: no known allergies; - Home Meds: 1. Nexium 20 mg Oral cpDR 1 cap once daily 2. lisinopril 20 mg Oral tab 1 tab once daily - PMHx: Hypertension; GERD; Shingles; - PSHx: C6 fusion; - Social history: Smoking status: Patient states was never smoker of tobacco. No barriers to communication noted, The patient speaks fluent Korean, Speaks appropriately for age. - Family history: Not pertinent. - : The pt / caregiver states he / she is not on anticoagulants. Home medication list is obtained from the patient. - Exposure Risk Screening:: None identified. Vital Signs: 09/14 10:02 BP 152 / 82; Pulse 79; Resp 18; Temp 98.0; Pulse Ox 98% ; Weight 117.93 kg / 259.99 elp lbs; Height 71 in. (180.34 cm) (R); Pain 7/10; 11:55 BP 135 / 78; Pulse 71; Resp 18; Temp 98; Pulse Ox 96% ; Pain 0/10; ms18 10:02 Body Mass Index 36.26 (117.93 kg, 180.34 cm) elp MDM: 10:08 ECG WITH READING ER PHYS+CARDIAG ordered. EDMS 10:24 IV Saline Lock ordered. dt4 10:24 ketorolac 30 mg IVP once ordered. dt4 10:25 US Upper Extremity R/O DVT Ordered. EDMS 10:25 CBC with Diff Ordered. EDMS 10:25 Basic Metabolic Profile Ordered. EDMS 10:26 Troponin Ordered. EDMS 10:26 Cardiac Injury Profile Ordered. EDMS 10:26 Sed Rate Ordered. EDMS 10:26 CRP Ordered. EDMS 10:26 Chest, 2 View (pa\E\lat) Ordered. EDMS 10:27 Spine, Cervical Ordered. EDMS 11:23 Financial registration complete. pm4 12:01 [facility] Payment Agreement was scanned into [employer] and attached to record. pm4 14:47 T-Sheet-- Draft Copy was scanned into [employer] and attached to record. gb 14:47 ECG/EKG was scanned into [employer] and attached to record. gb 14:48 Radiology Report was scanned into [employer] and attached to record. gb Administered Medications: 10:37 Drug: ketorolac 30 mg [ketorolac 30 mg/mL (1 mL) injection solution (1 mL)] Route: IVP; js13 Site: left antecubital; Signatures: Dispatcher [employer] EDKelli Moon, RN RN [facility] Bridgette Del Angel, Reg Reg gb Monisha Mclaughlin RN RN js13 Adamaris Malik, PAFidelia PALisandra Navarro,RN RN ms18 Anam Jameson, Reg Reg pm4 The chart was reviewed and I authenticate all verbal orders and agree with the evaluation and treatment provided.Attachments: 12:01 [facility] Payment Agreement pm4 14:47 T-Sheet-- Draft Copy gb 14:47 ECG/EKG gb Chart Complete MTDD
--- NOTE | 2016-09-16 12:57 | EDDOCDS ---
Physician Documentation [facility] Name: Francois Reich Age: 56 yrs Sex: Male : 1960 Arrival Date: 09/14/2016 Time: 10:00 Bed I5 / M5 Private MD: Sharee [facility] [place]position: 09/14/16 11:46 Discharged to Home/Self Care. Impression: Pain in left upper arm. - Condition is Stable. - Discharge Instructions: Musculoskeletal Pain. - Prescriptions for Mobic 7.5 mg Oral Tablet - take 1 tablet by ORAL route once daily As needed take with food; 20 tablet. - Medication Reconciliation, Local Pharmacy Hours form. - Follow up: Emergency Department; When: As needed; Reason: Worsening of conditions. Follow up: Private Physician; When: 2 - 3 days; Reason: Wound/Symptom Recheck, Recheck today's complaints, Continuance of care. - Problem is new. - Symptoms have improved. Historical: - Allergies: no known allergies; - Home Meds: 1. Nexium 20 mg Oral cpDR 1 cap once daily 2. lisinopril 20 mg Oral tab 1 tab once daily - PMHx: Hypertension; GERD; Shingles; - PSHx: C6 fusion; - Social history: Smoking status: Patient states was never smoker of tobacco. No barriers to communication noted, The patient speaks fluent Faroese, Speaks appropriately for age. - Family history: Not pertinent. - : The pt / caregiver states he / she is not on anticoagulants. Home medication list is obtained from the patient. - Exposure Risk Screening:: None identified. Vital Signs: 09/14 10:02 BP 152 / 82; Pulse 79; Resp 18; Temp 98.0; Pulse Ox 98% ; Weight 117.93 kg / 259.99 elp lbs; Height 71 in. (180.34 cm) (R); Pain 7/10; 11:55 BP 135 / 78; Pulse 71; Resp 18; Temp 98; Pulse Ox 96% ; Pain 0/10; ms18 10:02 Body Mass Index 36.26 (117.93 kg, 180.34 cm) elp MDM: 10:08 ECG WITH READING ER PHYS+CARDIAG ordered. EDMS 10:24 IV Saline Lock ordered. dt4 10:24 ketorolac 30 mg IVP once ordered. dt4 10:25 US Upper Extremity R/O DVT Ordered. EDMS 10:25 CBC with Diff Ordered. EDMS 10:25 Basic Metabolic Profile Ordered. EDMS 10:26 Troponin Ordered. EDMS 10:26 Cardiac Injury Profile Ordered. EDMS 10:26 Sed Rate Ordered. EDMS 10:26 CRP Ordered. EDMS 10:26 Chest, 2 View (pa\E\lat) Ordered. EDMS 10:27 Spine, Cervical Ordered. EDMS 11:23 Financial registration complete. pm4 12:01 [facility] Payment Agreement was scanned into [employer] and attached to record. pm4 14:47 T-Sheet-- Draft Copy was scanned into [employer] and attached to record. gb 14:47 ECG/EKG was scanned into [employer] and attached to record. gb 14:48 Radiology Report was scanned into [employer] and attached to record. gb Administered Medications: 10:37 Drug: ketorolac 30 mg [ketorolac 30 mg/mL (1 mL) injection solution (1 mL)] Route: IVP; js13 Site: left antecubital; Signatures: Dispatcher [employer] EDKelli Moon, RN RN [facility] Bridgette Del Angel, Reg Reg gb Monisha Mclaughlin RN RN js13 Adamaris Malik, PAFidelia PALisandra Navarro,RN RN ms18 Anam Jameson, Reg Reg pm4 The chart was reviewed and I authenticate all verbal orders and agree with the evaluation and treatment provided.Attachments: 12:01 [facility] Payment Agreement pm4 14:47 T-Sheet-- Draft Copy gb 14:47 ECG/EKG gb Chart Complete MTDD
== END 2016-09-14 11:57 | disposition home or self-care (01) ==
LOC: M ED 10:00
DX: M79.602 Pain in left arm (principal); I10 Essential (primary) hypertension; K21.9 Gastro-esophageal reflux disease without esophagitis; Z79.899 Other long term (current) drug therapy
CPT/HCPCS: 36415; 71020; 72052; 80048; 82550; 82553; 85025; 85652; 86140; 93005; 93971; 96374; 99284; J1885

== ENCOUNTER 2018-10-17 13:51 | Emergency (ER) | payer OTHER ==
[~2018-10-17] VITALS: Ht 180.3 cm; Wt 118.2 kg
[2018-10-17] MEDS ORDERED: OMEP20CA3 PO (14:01)
[2018-10-17] MEDS ORDERED: LISI-538 PO (14:01)
[2018-10-17 14:26] LABS: BASO # 0.1 10^3/uL (0.0-0.2); BASO % 0.4 % (0.0-1.0); EOS # 0.8 10^3/uL (0.0-0.50); EOS % 6.3 % (0.0-3.0); HEMATOCRIT 48.9 % (42.0-52.0); HEMOGLOBIN 16.2 g/dl (13.5-17.5); MEAN CORPUSCULAR HEMOGLOBIN 28.4 pg (27.0-33.0); MEAN CORPUSCULAR HGB CONC 33.1 g/dl (32.0-36.5); MEAN CORPUSCULAR VOLUME 85.8 fl (80.0-96.0); MONO # 0.6 10^3/uL (0.0-0.8); MONO % 5.2 % (0.0-5.0); NEUTROPHILS # 8.8 10^3/uL (1.8-7.7); NEUTROPHILS % 71.8 % (36.0-66.0); PLATELET COUNT, AUTOMATED 281 10^3/uL (150-450); WHITE BLOOD COUNT 12.2 10^3/uL (4.0-10.0)
[2018-10-17] MEDS ORDERED: NITROGLYCERIN 0.4 MG SUBL TABLET SL ONE (14:30)
[2018-10-17] MEDS ORDERED: ASPIRIN 81 MG CHEW TABLET PO ONE (14:30)
[2018-10-17 14:37] LABS: INR 0.97
[2018-10-17 14:38] LABS: PARTIAL THROMBOPLASTIN TIME 28.2 SECONDS (25.4-37.6)
[2018-10-17 14:51] LABS: ALBUMIN 4.2 GM/DL (3.2-5.2); ALT/SGPT 43 U/L (12-78); BILIRUBIN,DIRECT 0.2 MG/DL (0.0-0.2); BILIRUBIN,TOTAL 0.7 MG/DL (0.2-1.0); BLOOD UREA NITROGEN 19 MG/DL (7-18); C REACTIVE PROTEIN QUANTITATIV < 0.30 MG/DL (0.00-0.30); CALCIUM LEVEL 8.9 MG/DL (8.5-10.1); CARBON DIOXIDE LEVEL 26 MEQ/L (21-32); CHLORIDE LEVEL 108 MEQ/L (98-107); CPK CREATINE PHOSPHOKINASE 136 U/L (39-308); CREATININE FOR GFR 0.98 MG/DL (0.70-1.30); GLOMERULAR FILTRATION RATE > 60.0 (>56); GLUCOSE, FASTING 92 MG/DL (70-100); MB/CK RELATIVE INDEX 1.91 (< OR =4); NT-PRO BNP 20 PG/ML (<125); POTASSIUM SERUM 3.9 MEQ/L (3.5-5.1); SODIUM LEVEL 139 MEQ/L (136-145); THYROID STIMULATING HORMONE 0.608 uIU/ML (0.358-3.740); TOTAL PROTEIN 7.8 GM/DL (6.4-8.2); TROPONIN I < 0.02 NG/ML (< 0.10)
[2018-10-17 15:01] LABS: ERYTHROCYTE SEDIMENTATION RATE 1 mm/hr (0-20)
--- NOTE | 2018-10-17 15:08 | REP ---
AP PORTABLE CHEST: 10/17/2018. Clinical history: Chest pain. Comparison: 09/14/2016. Findings: The lung aguilera are well inflated. CP angles are sharply defined. There is some minimal linear fibrotic change in the left CP angle, unchanged. No effusion, lateral pleural thickening, apical scarring, pneumothorax. Heart, mediastinal, and hilar contours are normal. Lung aguilera are otherwise clear. The aorta is mildly tortuous, but normal for age. Airway intact. No mediastinal or hilar mass suggested by this portable chest. Visualized bones intact. There is a prior C6-C7 anterior cervical fusion with plate and screw fixation, stable. No free air. Impression: 1. No acute cardiopulmonary change, stable chest. Electronically Signed by Campos Cook MD 10/17/2018 05:52 P
--- NOTE | 2018-10-17 18:03 | ECGEPIP ---
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
[2018-10-17 18:30] LABS: MB/CK RELATIVE INDEX 1.95 (< OR =4); TROPONIN I 0.02 NG/ML (< 0.10)
[2018-10-17] MEDS ORDERED: ISOVUE-370 76% 100ML VIAL (Q9967) As Ordered ONE (19:05)
[2018-10-17 20:15] VITALS: BP 118/76
--- NOTE | 2018-10-17 21:00 | REPVR ---
EXAM: CT Angiography Chest With Contrast EXAM DATE/TIME: 10/17/2018 7:32 PM CLINICAL HISTORY: 58 years old, male; Pain; Chest pain; Type not specified TECHNIQUE: Axial computed tomographic angiography images of the chest with intravenous contrast using CT angiography protocol. All CT scans at this facility use at least one of these dose optimization techniques: automated exposure control; mA and/or kV adjustment per patient size (includes targeted exams where dose is matched to clinical indication); or iterative reconstruction. Coronal and sagittal reformatted images were created and reviewed. MIP reconstructed images were created and reviewed. CONTRAST: 100 ml of ISOVUE 370 administered intravenously. COMPARISON: CR PORTABLE CHEST X-RAY 10/17/2018 2:26 PM FINDINGS: Pulmonary arteries: No pulmonary arterial embolism. Aorta: Unremarkable. No aortic aneurysm. No aortic dissection. Lungs: Dependent atelectasis within the lung bases. No pulmonary consolidation. Pleural space: Normal. No pneumothorax. No pleural effusion. Heart: Coronary atherosclerosis. No cardiomegaly. Lymph nodes: Unremarkable. No enlarged lymph nodes. Bones/joints: Mild degenerative spondylosis of the thoracic spine. No fracture. Anterior spinal fusion within the lower cervical spine, unremarkable as visualized. Soft tissues: Unremarkable. IMPRESSION: No pulmonary embolism or other acute abnormality. Electronically signed by: Rodrigo Jaimes On 10/17/2018 21:00:15 PM
[2018-10-17] MEDS ORDERED: NITR0.4S14 SL (21:08)
[2018-10-17] MEDS ORDERED: ASPI1TAB PO (21:08)
--- NOTE | 2018-10-18 06:39 | ECGEPIP ---
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
== END 2018-10-17 21:25 | disposition home or self-care (01) ==
LOC: M ED 13:51
DX: R07.89 Other chest pain (principal); R00.1 Bradycardia, unspecified; I10 Essential (primary) hypertension; Z79.82 Long term (current) use of aspirin; Z79.899 Other long term (current) drug therapy
CPT/HCPCS: 36415; 71045; 71275; 80048; 80076; 82550; 82553; 83880; 84443; 84484; 85025; 85610; 85652; 85730; 86140; 93005; 93041; 94760; 99285; Q9967

== ENCOUNTER → 2018-10-23 | Outpatient (CLI) | payer OTHER ==
[~2018-10-23] MED LIST: ASPI1TAB PO; LISI-538 PO; NITR0.4S14 SL; OMEP20CA3 PO
[2018-10-23 14:14] LABS: CHOLESTEROL LEVEL 211 MG/DL (<200); CHOLESTEROL RISK RATIO 3.637 (<5); HDL CHOLESTEROL 58 MG/DL (>40); LDL CHOLESTEROL 129 MG/DL (<100); NON-HDL-C 153 MG/DL; TRIGLYCERIDES LEVEL 120 MG/DL (<150); TROPONIN I < 0.02 NG/ML (< 0.10)
== END ==
LOC: M SMT 09:54
PROVIDERS: ATTEND Internal Medicine Cardiovascular Disease
DX: R07.9 Chest pain, unspecified (principal)

== ENCOUNTER → 2019-10-01 | Outpatient (REF) | payer OTHER ==
[~2019-10-01] MED LIST changes: -ASPI1TAB PO; +ASPI81TA26 PO; +OMEP1CAP73 PO; -OMEP20CA3 PO
[2019-10-01 13:42] LABS: APPEARANCE, URINE CLEAR (CLEAR); BACTERIA, URINE AUTO NEGATIVE (NEGATIVE); BILIRUBIN, URINE AUTO NEGATIVE (NEGATIVE); BLOOD, URINE BLOOD NEGATIVE (NEGATIVE); COLOR, URINE YELLOW (YELLOW); GLUCOSE, URINE (UA) AUTO NEGATIVE (NEGATIVE); KETONE, URINE AUTO NEGATIVE (NEGATIVE); LEUKOCYTE ESTERASE, URINE AUTO NEGATIVE (NEGATIVE); MUCUS, URINE SMALL (NEGATIVE); NITRITE, URINE AUTO NEGATIVE (NEGATIVE); PROTEIN, URINE AUTO NEGATIVE (NEGATIVE); RBC, URINE AUTO 1 /HPF (0-3); SQUAMOUS EPITHELIAL CELL UR AU 0 /HPF (0-6); UROBILINOGEN, URINE AUTO 0.2 mg/dL (0.0-2.0); WBC, URINE AUTO 1 /HPF (0-3)
== END ==
LOC: M SMT 12:52
PROVIDERS: ATTEND Nurse Practitioner Family
DX: R35.0 Frequency of micturition (principal)
CPT/HCPCS: 51798; 81001; 87086; G0463

== ENCOUNTER 2020-02-24 13:21 | Emergency (ER) | payer OTHER ==
[~2020-02-24] VITALS: Ht 180.3 cm; Wt 117.5 kg
[2020-02-24] MEDS ORDERED: ONETAB16 PO (15:45)
[2020-02-24] MEDS ORDERED: EXCETAB33 PO (15:45)
--- NOTE | 2020-02-24 16:37 | CR.PDOC ---
General Date of Consultation: Feb 24, 2020 Referring Provider: ANTONELLA CHAUDHARI MD Attending Physician: LION COLES MD Consultation Primary physician/ hospitalist: - [facility]. Reason for consult: -Esophageal food impaction. HPI: 59-year-old male patient with HTN, presented to ER with complaints of food impaction, which started after having steak lunch, unable to swallow his own saliva, which improved in ER after drinking carbonated drink. GI was consulted for food impaction. Patient on examination in ER, was comfortable, able to swallow his saliva and feels that he might has passed the food. Patient does report having some sore throat from multiple episodes of emesis, that he had earlier. Patient denies any other active GI symptoms. Pertinent negative GI symptoms: Patient denies fever, sick contacts, recent travel, nausea, vomiting, diarrhea, abdominal pain, loss of appetite, early satiety or unintentional weight loss. No history of hematemesis, melena or hematochezia. Patient reports regular bowel movements. Review of Systems: GI: as stated above CVS: No chest pain, No palpitations, No leg swelling. RS: No Shortness of breath, No Wheezing, no cough INTAKE RN: No dizziness, No motor weakness, No sensory problems Hematology: No bruising, No gum bleeding, Musculoskeletal: No joint pain, ambulating well. Skin: No rash : No hematuria, No burning sensation of the urine ENT: No ear discharge/ pain, No dysphagia. Eyes: No photophobia. Jaundice Home medications: reviewed. Antithrombotic agents: -Aspirin 81 MG Medical h/o: As above. Surgical h/o: None on abdomen. Social h/o: Alcohol: Denies , smoking: Denies, IVDA/ drugs: Denies . Family h/o of GI cancers - None Prior Endoscopies: --- EGD: in 2012, by Dr. Chau for dysphagia, noted schatzki ring at GE junction, dilated with TTS balloon up to 20 mm. Medium-sized hiatal hernia, rest of the exam normal. --- Colonoscopy: -Done by Dr. Pastor in 2015 for screening -- no colon polyps, diverticulosis of colon, nonbleeding internal hemorrhoids. Recommended next screening colonoscopy in 5-10 years. Prior GI evaluations: -Used to follow with Dr. Chau and Dr. Darby in the past. Exam: Vitals: reviewed General: Alert and oriented x 3, mild distress HEENT: NO pallor, no icterus. Normal oropharynx, NO cervical lymph nodes. Chest: symmetric with bilateral clear air entry, CVS: S1, S2 heard, normal, no murmurs . Abdomen: non-distended, no surgical scars, soft, non-tender, no palpable masses, normal bowel sounds heard. Rectal exam: Patient refused / Deferred at this time in view of scheduled colonoscopy. Extremities: no pedal edema, pulses palpable. INTAKE RN: no focal motor or sensory deficits. Moves all extremities Skin: no rash. Labs: reviewed. Impression: - Esophageal food impaction - now resolved and able to drink carbonated drink and not in distress anymore-- likely passed Food bolus. - Prior known schatzki ring at GE junction in EGD done in 2012 with previous dilation -- needs further management. Recommendations: - Patient educated about the test results, possible differential diagnoses and All questions answered. - advance diet as tolerated. - Adequate oral hydration - If patient is able to tolerate liquids, he can be placed on oral pantoprazole 40 mg daily and sucralfate 1gm 3-4 times daily. ( preferably liquid formulation). - Patient is educated about elective EGD for further evaluation and management. As the food impaction resolved patient want to follow up in clinic for elective management. Patient is educated about the monitoring and red flag symptoms and to return to ER if any acute change in status. - Patient to call GI clinic to make outpatient follow up appointment. Please call @ [phone] to make follow up appointment in 2-3 weeks. Plan of care discussed with patient and primary team. Patient verbalized understanding and agreed with the plan. Vital Signs/I&O Vital Signs Date Time Temp Pulse Resp B/P (MAP) Pulse Ox O2 Delivery O2 Flow Rate FiO2 02/24/20 14:03 02/24/20 13:22 97.8 104 16 95 Room Air Laboratory Data Microbiology Microbiology 02/24/20 Respiratory Virus Panel (PCR) ([facility]), Received Pending Allergies Coded Allergies: No Known Allergies (Unverified , 10/17/18) Home Medications Scheduled Lisinopril (Lisinopril) 20 Mg Tab, 20 MG PO DAILY, (Reported) Multivitamin with Minerals (One Daily Plus Minerals) 1 Each Tablet, 1 TAB PO DAILY, (Reported) Omeprazole (Omeprazole) 20 Mg Cap, 20 MG PO DAILY, (Reported) Pantoprazole Sodium (Protonix) 40 Mg Tablet.dr, 40 MG PO DAILY for 60 Days, #60 Sucralfate (Carafate) 1 Gm Tablet, 1 GM PO BID for 60 Days, #100 Scheduled PRN Aspirin/Acetaminophen/Caffeine (Excedrin Migraine Caplet) 1 Each Tablet, 1 TAB- CAP PO TID PRN for MIGRAINE, (Reported) LION COLES MD Feb 24, 2020 16:37
[2020-02-24 17:15] VITALS: BP 137/82
[2020-02-24] MEDS ORDERED: CARA1TAB6 PO (17:19)
[2020-02-24] MEDS ORDERED: PROT1TAB2 PO (17:19)
== END 2020-02-24 17:25 | disposition home or self-care (01) ==
LOC: M ED 13:21
DX: T18.128A Food in esophagus causing other injury, initial encounter (principal)

== ENCOUNTER 2020-09-12 11:43 | Day surgery (SDC) | payer OTHER ==
[~2020-09-12] VITALS: Ht 177.8 cm; Wt 113.9 kg
[~2020-09-12 11:43] MED LIST changes: +CARA1TAB6 PO; +EXCETAB33 PO; +NS 1,000 ML IV ONE; +ONETAB16 PO; +PROT1TAB2 PO
[2020-09-12] MEDS ORDERED: fentaNYL 100 MCG/2 ML INJECTION (J3010) As Ordered ONE (13:20)
[2020-09-12] MEDS ORDERED: LIDOCAINE 2% 100MG/5ML SDV (FOR ANES.) As Ordered ONE (13:20)
[2020-09-12] MEDS ORDERED: propofoL 200 MG/20 ML VIAL As Ordered ONE (13:21)
--- NOTE | 2020-09-12 13:51 | ROOR ---
Patient Name: Francois Reich Procedure Date: 09/12/2020 1:17 PM Date of : 1960 Age: 60 Room: [facility] Gender: Male Note Status: Finalized Procedure: Upper GI endoscopy Indications: Dysphagia, Heartburn Providers: Braulio Jarrett MD Referring MD: DEANNA HUERTA MD Requesting Provider: Medicines: Monitored Anesthesia Care Complications: No immediate complications. Procedure: Pre-Anesthesia Assessment: - Prior to the procedure, a History and Physical was performed, and patient medications and allergies were reviewed. The patient is competent. The risks and benefits of the procedure and the sedation options and risks were discussed with the patient. All questions were answered and informed consent was obtained. Patient identification and proposed procedure were verified by the physician, the nurse and the anesthesiologist in the procedure room. Mental Status Examination: alert and oriented. Airway Examination: normal oropharyngeal airway and neck mobility. Respiratory Examination: clear to auscultation. CV Examination: normal. Prophylactic Antibiotics: The patient does not require prophylactic antibiotics. Prior Anticoagulants: The patient has taken no previous anticoagulant or antiplatelet agents. ASA Grade Assessment: II - A patient with mild systemic disease. After reviewing the risks and benefits, the patient was deemed in satisfactory condition to undergo the procedure. The anesthesia plan was to use monitored anesthesia care (MAC). Immediately prior to administration of medications, the patient was re-assessed for adequacy to receive sedatives. The heart rate, respiratory rate, oxygen saturations, blood pressure, adequacy of pulmonary ventilation, and response to care were monitored throughout the procedure. The physical status of the patient was re-assessed after the procedure. The Endoscope was introduced through the mouth, and advanced to the second part of duodenum. The upper GI endoscopy was accomplished without difficulty. The patient tolerated the procedure well. Findings: LA Grade C (one or more mucosal breaks continuous between tops of 2 or more mucosal folds, less than 75% circumference) esophagitis with no bleeding was found in the distal esophagus. Biopsies were taken with a cold forceps for histology. Verification of patient identification for the specimen was done by the physician and nurse using the patient's name, date and medical record number. Estimated blood loss was minimal. One benign-appearing, intrinsic mild (non-circumferential scarring) stenosis was found 39 cm from the incisors. This stenosis measured 1.2 cm (inner diameter). The stenosis was traversed. A TTS dilator was passed through the scope. Dilation with a 15-16.5-18 mm balloon dilator was performed to 18 mm. The dilation site was examined following endoscope reinsertion and showed no bleeding, mucosal tear or perforation. Patchy moderate inflammation characterized by erosions, erythema and granularity was found in the gastric antrum. Biopsies were taken with a cold forceps for Helicobacter pylori testing. The duodenal bulb and second portion of the duodenum were normal. Impression: - LA Grade C reflux esophagitis. Biopsied. - Benign-appearing esophageal stenosis. Dilated. - Gastritis. Biopsied. - Normal duodenal bulb and second portion of the duodenum. Recommendation: - Patient has a contact number available for emergencies. The signs and symptoms of potential delayed complications were discussed with the patient. Return to normal activities tomorrow. Written discharge instructions were provided to the patient. - High fiber diet. - Continue present medications. - No ibuprofen, naproxen, or other non-steroidal anti-inflammatory drugs. - Use Protonix (pantoprazole) 40 mg PO twice daily - to be taken in morning (1/2 hour before breakfast) and at bedtime ( atleast 3 hours after last meal) for 8 weeks. - Await pathology results. - Repeat upper endoscopy in 1 year for surveillance based on pathology results and depending on the symptoms and clinical response. - Return to GI clinic in [facility] (address [address], [address], [place], [address]) in 4 -- 6 weeks. Please call GI clinic @ [phone] for apppointment date and time. - Return to primary care physician. Procedure Code(s): --- Professional --- 84691, Esophagogastroduodenoscopy, flexible, transoral; with transendoscopic balloon dilation of esophagus (less than 30 mm diameter) 52747, 59, Esophagogastroduodenoscopy, flexible, transoral; with biopsy, single or multiple Diagnosis Code(s): --- Professional --- K21.0, Gastro-esophageal reflux disease with esophagitis K22.2, Esophageal obstruction K29.70, Gastritis, unspecified, without bleeding R13.10, Dysphagia, unspecified R12, Heartburn CPT copyright 2019 [employer]. All rights reserved. The codes documented in this report are preliminary and upon land acquisition analyst review may be revised to meet current compliance requirements. Braulio Jarrett MD Braulio Jarrett MD 09/12/2020 1:51:33 PM Electronically signed by Braulio Jarrett MD Number of Addenda: 0 Note Initiated On: 09/12/2020 1:17 PM Estimated Blood Loss: Estimated blood loss was minimal.
[2020-09-12 14:10] VITALS: BP 117/72
== END 2020-09-12 14:33 | disposition home or self-care (01) ==
LOC: M OPP 11:43
PROVIDERS: ATTEND Internal Medicine Gastroenterology
DX: R13.10 Dysphagia, unspecified (principal); R12 Heartburn; K21.00 Gastro-esophageal reflux disease with esophagitis, without bleeding; K22.2 Esophageal obstruction; K29.70 Gastritis, unspecified, without bleeding
CPT/HCPCS: 43239; 43249; 88305; J3010

== ENCOUNTER → 2024-12-28 | Outpatient (CLI) | payer OTHER ==
[~2024-12-28] MED LIST changes: +EXCETAB32 PO; -EXCETAB33 PO; -LISI-538 PO; +LISI20TA33 PO; -NS 1,000 ML IV ONE
== END ==
LOC: M CARPUL 14:26
PROVIDERS: ATTEND Internal Medicine
DX: R79.81 Abnormal blood-gas level (principal)